=== PATIENT | male | born 1950 | race Caucasian/White ===

== ENCOUNTER 2018-02-14 15:55 | Emergency (ER) | payer BC ==
[~2018-02-14] VITALS: Ht 182.9 cm; Wt 93.0 kg
--- NOTE | 2018-02-14 16:11 | NUR ---
Patient discharged to home in stable conditon with . Written and verbal after care instructions given. Patient and verbalized understanding of instructions. Stressed follow up or return to ER for worsening s/s. Pt ambulated out of ER with steady gait.
--- NOTE | 2018-02-14 16:11 | NUR ---
IV removed. Catheter intact and site benign. Pressure and 4x4 gauze applied to site. No bleeding noted.
== END 2018-02-14 16:13 | disposition home or self-care (01) ==
LOC: ER 15:55
DX: Z00.00 Encounter for general adult medical examination without abnormal findings (principal); E78.00 Pure hypercholesterolemia, unspecified
CPT/HCPCS: 93005; A4663